=== PATIENT | female | born 1990 ===

== ENCOUNTER 2022-11-15 15:50 | Emergency (ER) | payer OTHER, SELFPAY ==
[2022-11-15 16:32] VITALS: BP 134/73; PULSE 91; RESP 16; TEMP 36.7; O2SAT 100; BMI 30.4
[2022-11-15 18:50] VITALS: BP 166/84
[2022-11-15] MEDS: SODIUM CHLORIDE 0.9% 1,000 ML 1000 ML IV (18:52)
[2022-11-15] MEDS: ACETAMINOPHEN 325 MG TABLET 975 MG PO (18:53)
[2022-11-15] MEDS: METOCLOPRAMIDE 10 MG/2 ML INJ IV (18:54)
[2022-11-15] MEDS: KETOROLAC 30 MG/ML VIAL 15 MG IV (18:55)
[2022-11-15] MEDS: diphenhydrAMINE 50 MG/ML VIAL IV (18:56)
[2022-11-15] MEDS: DEXAMETHASONE 10 MG/ML VIAL IV (18:57)
[2022-11-15 19:00] VITALS: BP 145/93
[2022-11-15 19:04] VITALS: PULSE 77; O2SAT 100
[2022-11-15 19:30] VITALS: BP 137/78; PULSE 81; RESP 18; O2SAT 100
--- NOTE | 2022-11-23 20:30 | ED_ITS ---
HPI - Headache <Halley Mcdonald PA-C - Last Filed: 11/23/22 20:35> General Chief Complaint: Headache Stated Complaint: headache for 3 dayspain into rt eye, numb rt ear Time Seen by Provider: 11/15/22 18:19 History of Present Illness HPI Narrative: 32-year-old female presents to the ED with 3 days of headache. Patient denies fever, chills, neck pain, neck stiffness, chest pain, shortness of breath, nausea, vomiting, lightheadedness, syncope. Patient has a history of migraines. Related Data Allergies Allergy/AdvReac Type Severity Reaction Status Date / Time No Known Drug Allergies Allergy Verified 11/15/22 16:39 Review of Systems <Halley Mcdonald PA-C - Last Filed: 11/23/22 20:35> Review of Systems ROS Unobtainable: All systems reviewed & are unremarkable except as noted in HPI and below Constitutional Constitutional: Denies chills, Denies fatigue, Denies fever(s), Denies frequent falls, Reports headache(s), Denies lethargy and Denies weakness Eyes Eyes: Denies change in vision, Denies eye discharge, Denies irritation and Denies loss of vision ENT Ears, Nose, Mouth, and Throat: Denies change in voice, Denies dizziness, Reports headache(s), Denies neck pain, Denies sore throat and Denies throat swelling Cardiovascular Cardiovascular: Denies chest pain, Denies irregular heart rhythm, Denies lightheadedness, Denies palpitations, Denies dyspnea, Denies dyspnea on exertion and Denies orthopnea Respiratory Respiratory: Denies cough, Denies dyspnea, Denies dyspnea on exertion and Denies wheezing Gastrointestinal Gastrointestinal: Denies abdominal pain, Denies change in bowel habits, Denies diarrhea, Denies nausea and Denies vomiting Genitourinary Genitourinary: Denies hematuria, Denies flank pain, Denies urinary incontinence and Denies urinary urgency Musculoskeletal Musculoskeletal: Denies back pain, Denies muscle weakness, Denies neck pain, Denies numbness and Denies tingling Integumentary/Breasts Skin/Breast: Denies pruritus, Denies erythema, Denies rash and Denies wounds Neurologic Neurologic: Denies behavioral changes, Denies confusion, Denies dizziness, Denies frequent falls, Reports headache(s), Denies loss of vision, Denies numbness, Denies tingling and Denies weakness Psychiatric Psychiatric: Denies anxiety, Denies behavioral changes, Denies confusion, Denies depression, Denies homicidal ideation and Denies suicidal ideation Endocrine Endocrine: Denies fatigue, Denies flushing and Denies palpitations Hematologic/Lymphatic Hematologic/Lymphatic: Denies easy bruising Allergic/Immunologic Allergic/Immunologic: Denies urticaria, Denies throat swelling and Denies wheez ing Patient History <Halley Mcdonald PA-C - Last Filed: 11/23/22 20:35> Social History Smoking Status: Never smoker Smoking Status: Never smoker alcohol intake frequency: 0-2 drinks per day Substance Use Type: does not use Exam <Halley Mcdonald PA-C - Last Filed: 11/23/22 20:35> Narrative Exam Narrative: Const General:?cooperative, healthy appearing and comfortable [facility] Head:?normal to inspection Ears:?hearing grossly normal bilaterally Nose:?external nose normal Face and sinus:?normal facial exam and sinuses nontender Mouth:?oral mucosae normal Throat:?posterior oropharynx normal Eyes General:?appearance normal, both eyes and all related structures Neck Neck:?normal visual inspection and no lymphadenopathy noted Resp Effort & Inspection:?normal respiratory effort Auscultation:?clear to auscultation bilaterally Cardio Rate:?regular rate Rhythm:?regular rhythm Neuro General:?patient alert, patient awake and patient oriented x3; PERRLA; CN 1 through 12 intact bilaterally; gait is normal; negative [id number]; negative pronator drift; negative Romberg Initial Vital Signs Initial Vital Signs: Vital Signs Temperature 98.1 F 11/15/22 16:32 Pulse Rate 91 H 11/15/22 16:32 Respiratory Rate 16 11/15/22 16:32 Blood Pressure 134/73 11/15/22 16:32 Pulse Oximetry 100 11/15/22 16:32 Oxygen Delivery Method Room Air 11/15/22 16:32 <Lukas Sebastian DO - Last Filed: 11/24/22 00:58> Initial Vital Signs Initial Vital Signs: Vital Signs Temperature 98.1 F 11/15/22 16:32 Pulse Rate 91 H 11/15/22 16:32 Respiratory Rate 16 11/15/22 16:32 Blood Pressure 134/73 11/15/22 16:32 Pulse Oximetry 100 11/15/22 16:32 Oxygen Delivery Method Room Air 11/15/22 16:32 Course <Halley Mcdonald PA-C - Last Filed: 11/23/22 20:35> Orders Ordered: Discontinued Medications Acetaminophen (Acetaminophen 325 Mg Tablet) 975 mg PO NOW ONE Stop: 11/15/22 18:45 Last Admin: 11/15/22 18:53 Dose: 975 mg Documented By: AT Dexamethasone (Dexamethasone 10 Mg/Ml Vial) 10 mg IV NOW ONE Stop: 11/15/22 18:47 Last Admin: 11/15/22 18:57 Dose: 10 mg Documented By: AT Diphenhydramine HCl (Diphenhydramine 50 Mg/Ml Vial) 50 mg IV NOW ONE Stop: 11/15/22 18:45 Last Admin: 11/15/22 18:56 Dose: 50 mg Documented By: AT Sodium Chloride (Normal Saline 0.9%) 1,000 mls @ 1,000 mls/hr IV BOLUS ONE Stop: 11/15/22 19:43 Last Infusion: 11/15/22 19:29 Dose: 0 mls/hr Documented By: Admin: 11/15/22 18:52 Dose: 1,000 mls/hr Documented By: AT Ketorolac Tromethamine (Ketorolac 30 Mg/Ml Vial) 15 mg IV NOW ONE Stop: 11/15/22 18:45 Last Admin: 11/15/22 18:55 Dose: 15 mg Documented By: AT Metoclopramide HCl (Metoclopramide 10 Mg/2 Ml Inj) 10 mg IV NOW ONE Stop: 11/15/22 18:45 Last Admin: 11/15/22 18:54 Dose: 10 mg Documented By: AT <Lukas Sebastian DO - Last Filed: 11/24/22 00:58> Orders Ordered: Discontinued Medications Acetaminophen (Acetaminophen 325 Mg Tablet) 975 mg PO NOW ONE Stop: 11/15/22 18:45 Last Admin: 11/15/22 18:53 Dose: 975 mg Documented By: AT Dexamethasone (Dexamethasone 10 Mg/Ml Vial) 10 mg IV NOW ONE Stop: 11/15/22 18:47 Last Admin: 11/15/22 18:57 Dose: 10 mg Documented By: AT Diphenhydramine HCl (Diphenhydramine 50 Mg/Ml Vial) 50 mg IV NOW ONE Stop: 11/15/22 18:45 Last Admin: 11/15/22 18:56 Dose: 50 mg Documented By: AT Sodium Chloride (Normal Saline 0.9%) 1,000 mls @ 1,000 mls/hr IV BOLUS ONE Stop: 11/15/22 19:43 Last Infusion: 11/15/22 19:29 Dose: 0 mls/hr Documented By: Admin: 11/15/22 18:52 Dose: 1,000 mls/hr Documented By: AT Ketorolac Tromethamine (Ketorolac 30 Mg/Ml Vial) 15 mg IV NOW ONE Stop: 11/15/22 18:45 Last Admin: 11/15/22 18:55 Dose: 15 mg Documented By: AT Metoclopramide HCl (Metoclopramide 10 Mg/2 Ml Inj) 10 mg IV NOW ONE Stop: 11/15/22 18:45 Last Admin: 11/15/22 18:54 Dose: 10 mg Documented By: AT MDM - Headache <Halley Mcdonald PA-C - Last Filed: 11/23/22 20:35> [facility] Narrative Medical decision making narrative: 32-year-old female presents to the ED with 3 days of headache. Physical exam is reassuring, patient is neurologically intact. No red flag signs. Patient's symptoms likely due to a primary headache. Patient's symptoms improved significantly with IV fluids, Toradol, Tylenol, Reglan, Benadryl, dexamethasone. ED return precautions were discussed with patient. Patient verbalized understa nding. Medical records reviewed: Yes Discharge Plan Departure Patient Disposition: Home Clinical Impression: Headache Instructions: DI for Headache Activity Restrictions/Additional Instructions: You were evaluated in the ED today for a headache. You were given IV fluids, Toradol, Tylenol, Reglan, Benadryl, dexamethasone. Your symptoms significantly improved with all the medicines. You may continue to take Tylenol or ibuprofen at home if your headache recurs. Please follow-up with your PCP for further evaluation of the headaches. Return to the ED if your symptoms worsen, you experience persistent vomiting, you were unable to keep down fluids. Stand Alone Forms: Patient Portal/API <Lukas Sebastian DO - Last Filed: 11/24/22 00:58> Cosign ED Attending Cosignature Attestation: Dr Sebastian Co-Sign Statement: I was available for consultation during this patient's emergency department visit. This chart is signed by myself for administrative purposes only. I did not have direct contact with this patient during this visit. They were seen independently by the APC.
== END 2022-11-15 19:45 | disposition home or self-care (01) ==
PROVIDERS: Emergency Provider Student in an Organized Health Care Education/Training Program
DX: R51.9 Headache, unspecified (principal)
CPT/HCPCS: 96361; 96374; 96375; 99284; J1100; J1200; J1885; J2765

== ENCOUNTER → 2023-02-07 11:09 | Outpatient (CLI) | payer OTHER, SELFPAY ==
--- NOTE | 2023-02-07 | DI.US.S_ITS ---
PROCEDURE: US ABDOMEN LIMITED INDICATIONS: Elevation of levels of liver transaminase levels TECHNIQUE: Real-time scanning was performed of the abdominal and retroperitoneal organs, with image documentation. COMPARISON: None. FINDINGS: Liver: Increased liver echogenicity with posterior attenuation, most consistent with moderate to severe steatosis. Gallbladder: Unremarkable. Biliary ducts: Intrahepatic bile ducts are non-dilated. Extrahepatic bile duct caliber measures 5.8 mm. Normal is 6-7 mm or less in diameter, or 10 mm or less post-cholecystectomy. Pancreas: Visualized portions of the pancreas are sonographically normal. Miscellaneous: No free abdominal fluid. IMPRESSION: Moderate to severe hepatic steatosis. In the absence of alcohol use or other confounding factors, elevated LFTs may indicate non-alcoholic steatohepatitis (PADGETT). Dictated by: Derek Markham M.D. on 02/07/2023 at 12:22 Approved by: Derek Markham M.D. on 02/07/2023 at 12:23
== END ==
PROVIDERS: Referring Provider Registered Nurse; Visit Provider Registered Nurse
DX: K76.0 Fatty (change of) liver, not elsewhere classified (principal)
CPT/HCPCS: 76705

== ENCOUNTER 2023-12-07 09:21 | Emergency (ER) | payer OTHER, SELFPAY ==
[2023-12-07 09:30] VITALS: BP 148/88; PULSE 81; RESP 16; TEMP 36.4; O2SAT 99; BMI 42.8
[2023-12-07 09:49] LABS: Appearance Urine UA CLEAR; Bilirubin Urine UA NEGATIVE (NEGATIVE); Color Urine UA YELLOW; Glucose Urine UA NEGATIVE (Negative); Ketones Urine UA NEGATIVE (NEGATIVE); Leukocyte Esterase Urine UA 1+ (NEGATIVE); Nitrite Urine UA NEGATIVE (Negative); Occult Blood Urine UA NEGATIVE (Negative); Protein Urine UA NEGATIVE (Negative); Specific Gravity Urine UA 1.015 (1.000-1.035); Urobilinogen Urine UA 0.2 E.U./dL (0.2); pH Urine UA 5.5 (4.5-8.0)
[2023-12-07 09:50] LABS: Urine Volume 10mL (spun)
[2023-12-07 09:52] LABS: RBC Urine None Seen (0-5/HPF); WBC Urine 1-5/HPF (0-5/HPF)
[2023-12-07 09:53] LABS: Bacteria Urine Few (2-10); Culture Indicated Urine Specimen Cultured; Squamous Epithelial Cell Urine 1-5 /HPF (0-5/HPF)
--- NOTE | 2023-12-07 11:14 | ED_ITS ---
HPI - Recheck/Abnormal Lab/Rx <Luisa Huntley PA-C - Last Filed: 12/07/23 14:31> General Chief Complaint: Recheck/Abnormal Lab/Rx Stated Complaint: per pt recurring UTI Time Seen by Provider: 12/07/23 11:13 Source: patient Mode of arrival: Ambulatory History of Present Illness HPI narrative: Patient is a 33-year-old female who presents with concern for recurrent UTI. Treated for suspected UTI based [facility]. Took Macrobid from 11/29-12/04. [place] better but on 12/05 the symptoms resumed. Symptoms are burning, incomplete emptying of the bladder and lower abdominal pressure. She denies fever, chills back or flank pain or hematuria. She denies any abnormal vaginal or urethral discharge or skin lesions. She has no history of antibiotic allergies. No previous urine culture available for review. Related Data Previous Rx's Medication Instructions Recorded sulfamethoxazole 800 1 tab PO BID #6 tabs 12/07/23 mg-trimethoprim 160 mg tablet (Bactrim DS) Allergies Allergy/AdvReac Type Severity Reaction Status Date / Time No Known Drug Allergies Allergy Verified 12/07/23 09:34 Review of Systems <Luisa Huntley PA-C - Last Filed: 12/07/23 14:31> Review of Systems ROS Unobtainable: All systems reviewed & are unremarkable except as noted in HPI and below Patient History <Luisa Huntley PA-C - Last Filed: 12/07/23 14:31> Social History Smoking Status: Never smoker Smoking Status: Never smoker alcohol intake frequency: 0-2 drinks per day Substance Use Type: does not use Exam <Luisa Huntley PA-C - Last Filed: 12/07/23 14:31> Narrative Exam Narrative: GENERAL: 33 year old patient appears stated age. Well-developed patient, in no acute distress. NEURO: AOx3. HEAD: Atraumatic. Normocephalic. RESPIRATORY: No increased work of breathing GASTROINTESTINAL: Abdomen soft, non-tender, nondistended. No CVA tenderness. SKIN: No rash or erythema of visible areas Initial Vital Signs Initial Vital Signs: Vital Signs Temperature 97.5 F L 12/07/23 09:30 Pulse Rate 81 12/07/23 09:30 Respiratory Rate 16 12/07/23 09:30 Blood Pressure 148/88 H 12/07/23 09:30 Pulse Oximetry 99 12/07/23 09:30 Oxygen Delivery Method Room Air 12/07/23 09:30 <Lakesha Muhammad MD - Last Filed: 12/08/23 07:54> Initial Vital Signs Initial Vital Signs: Vital Signs Temperature 97.5 F L 12/07/23 09:30 Pulse Rate 81 12/07/23 09:30 Respiratory Rate 16 12/07/23 09:30 Blood Pressure 148/88 H 12/07/23 09:30 Pulse Oximetry 99 12/07/23 09:30 Oxygen Delivery Method Room Air 12/07/23 09:30 Course <Luisa Huntley PA-C - Last Filed: 12/07/23 14:31> Orders Ordered: ED Orders 12/07/23 09:39 Urinalysis and Microscopic Stat Urine Culture Stat Vital Signs Vital signs: Vital Signs - 8 hr 12/07/23 09:30 Temperature 97.5 F L Pulse Rate 81 Respiratory Rate 16 Blood Pressure 148/88 H Pulse Oximetry 99 Oxygen Delivery Method Room Air <Lakesha Muhammad MD - Last Filed: 12/08/23 07:54> Orders Ordered: ED Orders 12/07/23 09:39 Urinalysis and Microscopic Stat Urine Culture Stat Vital Signs Vital signs: Vital Signs - 8 hr 12/07/23 09:30 Temperature 97.5 F L Pulse Rate 81 Respiratory Rate 16 Blood Pressure 148/88 H Pulse Oximetry 99 Oxygen Delivery Method Room Air MDM - Recheck/Abnormal Lab/Rx <Luisa Huntley PA-C - Last Filed: 12/07/23 14:31> Lab Data Labs: Lab Results 12/07/23 Range/Units 09:39 Urine Color Yellow Urine Appearance Clear Urine pH 5.5 (4.5-8.0) Ur Specific [place] 1.015 (1.000-1.035) Urine Protein Negative (Negative) Urine Glucose (UA) Negative (Negative) g/dL Urine Ketones Negative (NEGATIVE) Urine Occult Blood Negative (Negative) Urine Nitrate Negative (Negative) Urine Bilirubin Negative (NEGATIVE) Urine Urobilinogen 0.2 (0.2) E.U./dL Ur Leukocyte Esterase 1+ H (NEGATIVE) Urine RBC None seen (0-5/HPF) Urine WBC 1-5/hpf (0-5/HPF) Ur Squamous Epith Cells 1-5 /hpf (0-5/HPF) Urine Bacteria Few (2-10) H (None) Ur Culture Indicated? Specimen cultured Vol Urine Centrifuged 10ml (spun) MDM Narrative Medical decision making narrative: Multiple etiologies for patient's symptoms considered including, but not limited to: UTI, pyelo, STI Patient recently completed empiric treatment of UTI with Macrobid after a telehealth visit. She had improved symptoms with the antibiotics but then the symptoms returned. No previous culture available for review. We will try Bactrim and culture urine today. We will notify patient if antibiotics need to be changed. She denies CVA tenderness, fever, chills, back pain or other symptoms to increase suspicion for a systemic infection. Vital signs are within normal limits. Patient discharged. Patient's symptoms improved over duration of stay with above-stated therapies. Findings and discharge diagnosis discussed with patient/family followed by jalen balization of understanding Return precautions discussed with patient/family whom verbalize understanding of diagnosis and plan <Lakesha Muhammad MD - Last Filed: 12/08/23 07:54> Lab Data Labs: Lab Results 12/07/23 Range/Units 09:39 Urine Color Yellow Urine Appearance Clear Urine pH 5.5 (4.5-8.0) Ur Specific [place] 1.015 (1.000-1.035) Urine Protein Negative (Negative) Urine Glucose (UA) Negative (Negative) g/dL Urine Ketones Negative (NEGATIVE) Urine Occult Blood Negative (Negative) Urine Nitrate Negative (Negative) Urine Bilirubin Negative (NEGATIVE) Urine Urobilinogen 0.2 (0.2) E.U./dL Ur Leukocyte Esterase 1+ H (NEGATIVE) Urine RBC None seen (0-5/HPF) Urine WBC 1-5/hpf (0-5/HPF) Ur Squamous Epith Cells 1-5 /hpf (0-5/HPF) Urine Bacteria Few (2-10) H (None) Ur Culture Indicated? Specimen cultured Vol Urine Centrifuged 10ml (spun) Discharge Plan Departure Patient Disposition: Home Clinical Impression: UTI (urinary tract infection) Qualifiers: Urinary tract infection type: acute cystitis Hematuria presence: without hematuria Qualified Code(s): N30.00 - Acute cystitis without hematuria Instructions: DI for Urinary Tract Infection (UTI) Activity Restrictions/Additional Instructions: *You have been diagnosed with urinary tract infection. We will try different antibiotic this time. We will send your urine to our lab for culture and we will notify you if you need a change in antibiotic based on the bacteria that grows. If your symptoms do not resolve after taking this antibiotic, I suggest you follow up with your primary care. If you develop any a new or severe symptoms, please return for reassessment. *What to do: *Please continue to take your regular medications as directed. [x ] New medication prescriptions sent to your pharmacy: [facility] [ ] New medication written as a paper prescription [ ] No new medications given *Please follow up with your primary care provider in 2-3 days, call for an appointment. Let them know you were seen in the Emergency Department and that we ask that you be seen in follow up. We will electronically transmit a record of today's note if your PCP is in our system *If you do not have a primary care provider please contact the [facility] Resource line at [phone]. They will ask some questions about your medical history and help get you set up with a doctor in the community. *Return to Emergency Department if you should have any new, worsening or concerning symptoms, such as [fever greater than 101 F, shaking chills, worsening pain, persistent vomiting or other concerning symptoms]. Prescriptions: New sulfamethoxazole-trimethoprim [Bactrim DS] 800-160 mg tablet 1 tab PO BID Qty: 6 0RF Stand Alone Forms: Patient Portal/API ED Sign-out <Lakesha Muhammad MD - Last Filed: 12/08/23 07:54> Cosign ED Attending Cossaadiaature Attestation: I was immediately available in the department for consultation throughout this patient's visit. Lakesha Muhammad MD
== END 2023-12-07 11:30 | disposition home or self-care (01) ==
PROVIDERS: Emergency Medicine; Emergency Provider Physician Assistant
DX: N30.00 Acute cystitis without hematuria (principal)
CPT/HCPCS: 81001; 87086; 87147; 99281; 99282

== ENCOUNTER 2023-12-10 13:52 | Emergency (ER) | payer OTHER, SELFPAY ==
[2023-12-10 13:56] VITALS: BP 163/88; PULSE 99; RESP 18; TEMP 36.4; O2SAT 98; BMI 42.5
--- NOTE | 2023-12-10 14:36 | ED.FEMALEGU ---
HPI - Female Genitourinary <Carmelita Mcgraw PA-C - Last Filed: 12/10/23 18:07> General Chief complaint: Urogenital-Female Stated complaint: reoccuring uti Time Seen by Provider: 12/10/23 14:27 Source: patient Mode of arrival: Ambulatory History of Present Illness HPI Narrative: 33-year-old female here today for ongoing urinary symptoms. She was initially evaluated through a phone visit by the [place] and prescribed Macrobid which she took from 11/29 to 12/04. States she felt mostly improved and then her symptoms returned the next day. She was seen here in the ED on 12/06 4 ongoing lower abdominal pressure and sensation of incomplete emptying of her bladder. No burning during urination. She was given Bactrim at that visit which she just finished this morning but states her symptoms have not gone away. She does report they have improved slightly but she still has the constant pressure and feeling that her bladder is not completely empty at all times. She denies any fevers, chills, back pain, hematuria. She denies any vaginal discharge. She has no concerns about STDs, denies any new partners recently. Prior to this month she has not had any UTIs in her life other than 1 during which was asymptomatic. She denies any constipation. Related Data Previous Rx's Medication Instructions Recorded sulfamethoxazole 800 1 tab PO BID #6 tabs 12/07/23 mg-trimethoprim 160 mg tablet (Bactrim DS) Allergies Allergy/AdvReac Type Severity Reaction Status Date / Time No Known Drug Allergies Allergy Verified 12/10/23 13:56 Review of Systems <Carmelita Mcgraw PA-C - Last Filed: 12/10/23 18:07> Review of Systems ROS Unobtainable: All systems reviewed & are unremarkable except as noted in HPI and below Patient History <Carmelita Mcgraw PA-C - Last Filed: 12/10/23 18:07> alcohol intake frequency: 0-2 drinks per day Substance Use Type: does not use Exam <Carmelita Mcgraw PA-C - Last Filed: 12/10/23 18:07> Narrative Exam Narrative: GENERAL: Well-developed, well-nourished, appears stated age. In no acute distress HEAD: Atraumatic. Normocephalic. EYES: Pupils equal round and reactive. Extraocular motions intact. No scleral icterus. No injection or drainage. ENT: Nose without bleeding, purulent drainage. Airway patent. NECK: Trachea midline. Non tender RESPIRATORY: Respiratory rate and effort normal ABD: Soft, nondistended, nontender. No bladder tenderness or CVAT. EXTREMITIES: No edema or joint tenderness. NEURO: AOx3. SKIN: No rash or erythema of visible areas Initial Vital Signs Initial Vital Signs: Vital Signs Temperature 97.6 F 12/10/23 13:56 Pulse Rate 99 H 12/10/23 13:56 Respiratory Rate 18 12/10/23 13:56 Blood Pressure 163/88 H 12/10/23 13:56 Pulse Oximetry 98 12/10/23 13:56 Oxygen Delivery Method Room Air 12/10/23 13:56 <Ruby Rankin MD - Last Filed: 12/11/23 07:02> Initial Vital Signs Initial Vital Signs: Vital Signs Temperature 97.6 F 12/10/23 13:56 Pulse Rate 99 H 12/10/23 13:56 Respiratory Rate 18 12/10/23 13:56 Blood Pressure 163/88 H 12/10/23 13:56 Pulse Oximetry 98 12/10/23 13:56 Oxygen Delivery Method Room Air 12/10/23 13:56 Course <Carmelita Mcgraw PA-C - Last Filed: 12/10/23 18:07> Orders Ordered: ED Orders 12/10/23 14:43 Urine Culture Stat Urine Microscopic Stat 12/10/23 18:00 Chlamydia Gonorrhea PCR -URINE Stat Vital Signs Vital signs: Vital Signs - 8 hr 12/10/23 13:56 Temperature 97.6 F Pulse Rate 99 H Respiratory Rate 18 Blood Pressure 163/88 H Pulse Oximetry 98 Oxygen Delivery Method Room Air <Ruby Rankin MD - Last Filed: 12/11/23 07:02> Orders Ordered: ED Orders 12/10/23 14:43 Urine Culture Stat Urine Microscopic Stat 12/10/23 18:00 Chlamydia Gonorrhea PCR -URINE Stat Vital Signs Vital signs: Vital Signs - 8 hr 12/10/23 13:56 Temperature 97.6 F Pulse Rate 99 H Respiratory Rate 18 Blood Pressure 163/88 H Pulse Oximetry 98 Oxygen Delivery Method Room Air MDM - Female Genitourinary <Carmelita Mcgraw PA-C - Last Filed: 12/10/23 18:07> Lab Data Labs: Lab Results 12/10/23 Range/Units 14:43 Urine RBC None seen (0-5/HPF) Urine WBC 10-30/hpf H (0-5/HPF) Ur Squamous Epith Cells 1-5 /hpf (0-5/HPF) Urine Bacteria Few (2-10) H (None) Vol Urine Centrifuged 10ml (spun) Ur Chlamydia DNA (PCR) Not detected N gonorrhoeae DNA (PCR) Not detected Urine Dip Bedside Urine Glucose Negative Bedside Urine Bilirubin - Negative Bedside Urine Ketone - Negative Urine Specific [place] 1.030 Bedside Urine Occult Blood - Negative Bedside Urine pH 6.0 Bedside Urine Protein - Negative Bedside Urine Urobilinogen - Negative Bedside Urine Nitrite - Negative Bedside Urine Leukocytes +/- 15 Esterase MDM Narrative Medical decision making narrative: [] Multiple etiologies for patient's symptoms considered including, but not limited to: UTI, interstitial cystitis, overactive bladder, STI Reviewed patient's previous ER visit and urine culture results which showed less than 10,000 group B strep. She has already taken Macrobid and Bactrim. Today her initial urine dip showed small amount of leukocytes in the microscopic analysis showed some white blood cells and few bacteria. Based on her lack of positive urine culture from her ED visit 3 days ago and her inconclusive urine test results today, I do not think patient has a true bacterial cystitis at this time. She does not have any dysuria or urinary frequency, just pelvic pressure and sensation of incomplete bladder emptying. She denies pain. We discussed other possibilities for her symptoms besides a UTI. We will send her urine for GC and chlamydia testing just as a precaution. Do not think that a 3rd antibiotic is warranted at this time. Recommend patient drink plenty of fluids, discussed methods to ensure complete bladder emptying. Recommend she monitor her symptoms and if not improving in 1-2 weeks she follow up her primary care provider to discuss the next steps. Patient's symptoms improved over duration of stay with above-stated therapies. Findings and discharge diagnosis discussed with patient/family followed by verbalization of understanding Return precautions discussed with patient/family whom verbalize understanding of diagnosis and plan <Ruby Rankin MD - Last Filed: 12/11/23 07:02> Lab Data Labs: Lab Results 12/10/23 Range/Units 14:43 Urine RBC None seen (0-5/HPF) Urine WBC 10-30/hpf H (0-5/HPF) Ur Squamous Epith Cells 1-5 /hpf (0-5/HPF) Urine Bacteria Few (2-10) H (None) Vol Urine Centrifuged 10ml (spun) Ur Chlamydia DNA (PCR) Not detected N gonorrhoeae DNA (PCR) Not detected Urine Dip Bedside Urine Glucose Negative Bedside Urine Bilirubin - Negative Bedside Urine Ketone - Negative Urine Specific [place] 1.030 Bedside Urine Occult Blood - Negative Bedside Urine pH 6.0 Bedside Urine Protein - Negative Bedside Urine Urobilinogen - Negative Bedside Urine Nitrite - Negative Bedside Urine Leukocytes +/- 15 Esterase Discharge Plan Departure Patient Disposition: Home Clinical Impression: Feeling of incomplete bladder emptying Instructions: DI for Urinary Retention in Women Activity Restrictions/Additional Instructions: Thank you for choosing us to care for you today. You were seen today for bladder pressure and feeling like you are unable to completely empty your bladder. At this time it does not appear that you have a UTI so more antibiotics are not indicated. You may have some residual inflammation from a UTI or there may be some other cause of your symptoms but there is no indication for further imaging or testing in the emergency department at this time. If you continue to experience these symptoms for more than 1-2 more weeks please follow up with her primary care provider to discuss the next step. If you have new or worsening symptoms including high fevers, back pain, vomiting, new pain when urinating please return to the emergency department. Prescriptions: No Action sulfamethoxazole-trimethoprim [Bactrim DS] 800-160 mg tablet 1 tab PO BID Qty: 6 0RF Stand Alone Forms: Patient Portal/API ED Sign-out <Ruby Rankin MD - Last Filed: 12/11/23 07:02> Cosign ED Attending Cosignature Attestation: I did not see this patient. I was available all times for consultation.
[2023-12-10 15:03] LABS: Bacteria Urine Few (2-10); RBC Urine None Seen (0-5/HPF); Urine Volume 10mL (spun); WBC Urine 10-30/HPF (0-5/HPF)
[2023-12-10 15:04] LABS: Squamous Epithelial Cell Urine 1-5 /HPF (0-5/HPF)
[2023-12-10 19:37] LABS: Urine N gonorrhoeae NOT DETECTED
[2023-12-10 19:38] LABS: Urine Chlamydia NOT DETECTED
== END 2023-12-10 15:33 | disposition home or self-care (01) ==
PROVIDERS: Emergency Provider Physician Assistant
DX: R33.9 Retention of urine, unspecified (principal); R10.2 Pelvic and perineal pain; Z11.3 Encounter for screening for infections with a predominantly sexual mode of transmission
CPT/HCPCS: 81003; 81015; 87077; 87086; 87491; 87591; 99281; 99282